=== PATIENT | female | born 1985 | race Caucasian/White ===

== ENCOUNTER 2018-12-05 06:32 | Inpatient (IN) | payer MEDICAID ==
[2018-12-05] MEDS ORDERED: OXYTOCIN 30 UNITS/LR 500 ML IV ×2 (07:00→16:30)
[2018-12-05] MEDS ORDERED: CARBOPROST 250 MCG INJ IM ×2 (07:00→16:30)
[2018-12-05] MEDS ORDERED: METHYLERGONOVINE 0.2 MG INJ IM ×2 (07:00→16:30)
[2018-12-05] MEDS ORDERED: MISOPROSTOL 200 MCG TAB PR ×2 (07:00→16:30)
[2018-12-05] MEDS: LACTATED RINGER'S 1,000 ML IV ×2 (07:47→08:33)
[2018-12-05 09:53] LABS: ADD MAN DIFF? NO
[2018-12-05 09:56] LABS: WHITE BLOOD COUNT 9.1 10^3/ul (4.8-10.8)
[2018-12-05 09:56] LABS: ABNORMAL IP MESSAGE 1; BASOPHILS % 0.4 % (0.0-2.0); EOSINOPHILS # 0.1 10^3/ul (0.0-0.5); EOSINOPHILS % 1.3 % (0.0-7.0); HEMATOCRIT 38.4 % (37.0-47.0); HEMOGLOBIN 12.2 g/dl (12.0-16.0); LYMPHOCYTES # 1.8 10^3/ul (0.8-2.9); LYMPHOCYTES % 20.2 % (15.0-51.0); MEAN CORPUSCULAR HEMOGLOBIN 26.1 pg (29.0-33.0); MEAN CORPUSCULAR HGB CONC 31.8 g/dl (32.0-37.0); MEAN CORPUSCULAR VOLUME 82.1 fl (82.0-101.0); MONOCYTE # 0.7 10^3/ul (0.3-0.9); NEUTROPHIL # 6.4 10^3/ul (1.6-7.5); NEUTROPHILS % 69.8 % (39.0-77.0); PLATELET COUNT 121 10^3/UL (140-415); RED BLOOD COUNT 4.68 10^6/ul (4.20-5.40); RED CELL DISTRIBUTION WIDTH 14.5 % (11.5-14.5)
[2018-12-05 09:58] LABS: POSITIVE DIFF @See below
[2018-12-05] MEDS: ONDANSETRON 4 MG INJ IV (10:16)
[2018-12-05] MEDS: CITRIC ACID/NA CITRATE 30 ML CUP PO (10:16)
[2018-12-05 10:23] LABS: PROTIME 12.3 Sec (11.9-14.9)
[2018-12-05 10:24] LABS: PARTIAL THROMBOPLASTIN TIME 32.1 Sec (23.0-35.0)
[2018-12-05 10:49] LABS: HEPATITIS B SURFACE ANTIGEN NEGATIVE (NEGATIVE)
[2018-12-05] MEDS ORDERED: FENTAnyl 50 MCG/ML VIAL (10:59)
[2018-12-05] MEDS ORDERED: OXYTOCIN 10 UNIT INJ (10:59)
[2018-12-05] MEDS ORDERED: METOCLOPRAMIDE 10 MG INJ (10:59)
[2018-12-05] MEDS ORDERED: morphine SULFATE/PF (10 MG/10 ML) INJ (10:59)
[2018-12-05] MEDS ORDERED: MIDAZOLAM 1 MG/ML 2 ML INJ IV (11:30)
[2018-12-05] MEDS ORDERED: TRIMETHOBENZAMIDE 100 MG/ML VIAL IM ×2 (11:30)
[2018-12-05] MEDS ORDERED: morphine 2 MG INJ IV ×2 (11:30)
[2018-12-05] MEDS ORDERED: NALOXONE (0.4 MG/ML) INJ IV (11:30)
[2018-12-05] MEDS ORDERED: NALBUPHINE HCL (10 MG/1 ML) INJ IV (11:30)
[2018-12-05] MEDS ORDERED: ALBUTEROL 0.083% (NEB) 2.5 MG/3 ML AMP HHN (11:30)
[2018-12-05] MEDS ORDERED: LABETALOL HCL 20MG INJ IV (11:30)
[2018-12-05] MEDS ORDERED: OXYCODONE/ACETAMINOPHEN (5/325) TAB PO ×2 (11:30)
[2018-12-05] MEDS ORDERED: hydrALAzine 20 MG INJ IV (11:30)
[2018-12-05] MEDS ORDERED: HYDROmorphONE 1 MG/5 ML IV SYRINGE IV ×3 (11:30)
[2018-12-05] MEDS ORDERED: ONDANSETRON 4 MG INJ IV ×2 (11:30)
[2018-12-05] MEDS ORDERED: EPHEDrine 25 MG/5 ML SYG IV (11:30)
[2018-12-05] MEDS ORDERED: DIPHENHYDRAMINE 50 MG INJ IV ×2 (11:30)
[2018-12-05] MEDS ORDERED: MEPERIDINE 25 MG INJ IV (11:30)
[2018-12-05] MEDS ORDERED: FENTAnyl 50 MCG/ML VIAL IV ×3 (11:30)
[2018-12-05] MEDS ORDERED: IPRATROPIUM (NEB) 0.5 MG/2.5 ML AMP HHN (11:30)
[2018-12-05] MEDS ORDERED: DEXAMETHASONE 4 MG/ML 1 ML INJ (11:43)
[2018-12-05] MEDS ORDERED: KETOROLAC 30 MG INJ (12:00)
[2018-12-05] MEDS: OXYTOCIN 30 UNITS/LR 500 ML IV ×2 (12:52→17:05)
[2018-12-05] MEDS: CEFAZOLIN 2 GM/50 ML (PMX) 50 ML IVPB (13:18)
[2018-12-05 15:07] LABS: RAPID PLASMA REAGIN NONREACTIVE (NR)
[2018-12-05] MEDS: DEXTROSE 5%-LR 1,000 ML IV (16:10)
[2018-12-05] MEDS ORDERED: LANOLIN HPA 1 PKT TOP (16:30)
[2018-12-05] MEDS ORDERED: METHYLERGONOVINE 0.2 MG TAB PO (16:30)
[2018-12-05] MEDS: SENNA/DOCUSATE NA (8.6MG/50MG) TAB PO (21:47)
[2018-12-06] MEDS: DEXTROSE 5%-LR 1,000 ML IV (02:07)
[2018-12-06 08:17] LABS: ADD MAN DIFF? NO
[2018-12-06 08:23] LABS: ABNORMAL IP MESSAGE 1; BASOPHILS % 0.3 % (0.0-2.0); EOSINOPHILS # 0.1 10^3/ul (0.0-0.5); EOSINOPHILS % 0.5 % (0.0-7.0); HEMATOCRIT 28.1 % (37.0-47.0); LYMPHOCYTES # 1.2 10^3/ul (0.8-2.9); MEAN CORPUSCULAR HEMOGLOBIN 26.5 pg (29.0-33.0); MEAN CORPUSCULAR VOLUME 82.9 fl (82.0-101.0); MEAN PLATELET VOLUME 13.6 fl (7.4-10.4); MONOCYTE # 0.8 10^3/ul (0.3-0.9); MONOCYTES % 7.8 % (0.0-11.0); NEUTROPHIL # 7.6 10^3/ul (1.6-7.5); PLATELET COUNT 96 10^3/UL (140-415); RED BLOOD COUNT 3.39 10^6/ul (4.20-5.40); RED CELL DISTRIBUTION WIDTH 14.5 % (11.5-14.5)
[2018-12-06 08:23] LABS: WHITE BLOOD COUNT 9.7 10^3/ul (4.8-10.8)
[2018-12-06] MEDS: KETOROLAC 30 MG INJ IV (09:06)
[2018-12-06] MEDS: SENNA/DOCUSATE NA (8.6MG/50MG) TAB PO ×2 (09:06→21:19)
[2018-12-06] MEDS ORDERED: HYDROCODONE/APAP (5/325) TAB NGT (11:00)
[2018-12-06] MEDS ORDERED: HYDROCODONE/APAP (5/325) TAB PO (11:00)
[2018-12-06] MEDS ORDERED: DIPHTH/TET/ACEL PERTUSS (ADULT) 0.5 ML VIAL IM* (11:00)
[2018-12-06] MEDS ORDERED: HYDROCODONE/APAP (5/325) TAB GTB (14:00)
[2018-12-06] MEDS: HYDROCODONE/APAP (5/325) TAB PO ×2 (14:00→21:19)
[2018-12-06] MEDS: IBUPROFEN 800 MG TAB PO ×2 (14:28→21:20)
[2018-12-06] MEDS: POLYSACCHARIDE IRON COMPLEX CAP PO (16:24)
[2018-12-07] MEDS: IBUPROFEN 800 MG TAB PO ×3 (05:56→21:35)
[2018-12-07] MEDS: HYDROCODONE/APAP (5/325) TAB PO ×3 (05:56→21:36)
[2018-12-07 06:41] LABS: ADD MAN DIFF? NO
[2018-12-07 06:45] LABS: WHITE BLOOD COUNT 10.8 10^3/ul (4.8-10.8)
[2018-12-07 06:45] LABS: BASOPHIL # 0.1 10^3/ul (0.0-0.1); BASOPHILS % 0.5 % (0.0-2.0); EOSINOPHILS # 0.2 10^3/ul (0.0-0.5); EOSINOPHILS % 1.9 % (0.0-7.0); HEMATOCRIT 28.1 % (37.0-47.0); HEMOGLOBIN 8.9 g/dl (12.0-16.0); LYMPHOCYTES # 1.7 10^3/ul (0.8-2.9); MEAN CORPUSCULAR HEMOGLOBIN 26.1 pg (29.0-33.0); MEAN CORPUSCULAR HGB CONC 31.7 g/dl (32.0-37.0); MEAN CORPUSCULAR VOLUME 82.4 fl (82.0-101.0); MEAN PLATELET VOLUME 12.8 fl (7.4-10.4); MONOCYTE # 0.9 10^3/ul (0.3-0.9); MONOCYTES % 8.7 % (0.0-11.0); NEUTROPHIL # 7.8 10^3/ul (1.6-7.5); NEUTROPHILS % 72.5 % (39.0-77.0); PLATELET COUNT 114 10^3/UL (140-415); RED BLOOD COUNT 3.41 10^6/ul (4.20-5.40); RED CELL DISTRIBUTION WIDTH 14.6 % (11.5-14.5)
[2018-12-07] MEDS: SENNA/DOCUSATE NA (8.6MG/50MG) TAB PO ×2 (08:38→21:35)
[2018-12-07] MEDS: POLYSACCHARIDE IRON COMPLEX CAP PO (08:39)
[2018-12-07] MEDS: MAGNESIUM HYDROXIDE 30ML CUP PO (09:24)
[2018-12-08] MEDS: HYDROCODONE/APAP (5/325) TAB PO ×2 (05:38→14:00)
[2018-12-08] MEDS: IBUPROFEN 800 MG TAB PO ×2 (05:38→14:00)
[2018-12-08] MEDS: SENNA/DOCUSATE NA (8.6MG/50MG) TAB PO (08:21)
[2018-12-08] MEDS: MEASLES,MUMPS,RUBELLA VACCINE INJ SC* (09:00)
[2018-12-08] MEDS: POLYSACCHARIDE IRON COMPLEX CAP PO (09:54)
[2018-12-08] MEDS: DIPHTH/TET/ACEL PERTUSS (ADULT) 0.5 ML VIAL IM* (10:01)
== END 2018-12-08 15:40 | disposition home or self-care (01) | DRG 784 ==
LOC: L-D 06:32 → PP1 15:56
PROVIDERS: Obstetrics & Gynecology
PROC: 10D00Z1 Extraction of Products of Conception, Low, Open Approach (ICD-10-PCS; principal; 2018-12-05 09:00)
PROC: 0UL70ZZ Occlusion of Bilateral Fallopian Tubes, Open Approach (ICD-10-PCS; 2018-12-05 09:00)
DX: O65.5 Obstructed labor due to abnormality of maternal pelvic organs (principal); O24.113 Pre-existing type 2 diabetes mellitus, in pregnancy, third trimester; O34.211 Maternal care for low transverse scar from previous cesarean delivery; O99.013 Anemia complicating pregnancy, third trimester; E11.9 Type 2 diabetes mellitus without complications; Z30.2 Encounter for sterilization; Z3A.38 38 weeks gestation of pregnancy; Z37.0 Single live birth
CPT/HCPCS: 82962; 85025; 85610; 85730; 86592; 86850; 86900; 86901; 87340; 88302; 90715; 99464